=== PATIENT | female | born 2000 | race African-American/Black ===

== ENCOUNTER 2023-08-04 05:52 | Emergency (ER) | payer BC ==
[~2023-08-04] VITALS: Ht 162.6 cm; Wt 59.0 kg
[2023-08-04 06:03] VITALS: BP 125/47; PULSE 81; RESP 18; TEMP 98.6; O2SAT 99
== END 2023-08-04 08:54 | disposition left against medical advice (07) ==
LOC: ER 05:52
DX: R68.84 Jaw pain (principal); Z53.21 Procedure and treatment not carried out due to patient leaving prior to being seen by health care provider
CPT/HCPCS: 99281